=== PATIENT | male | born 1990 | race Caucasian/White ===

== ENCOUNTER 2024-01-01 09:06 | Emergency (ER) | payer OTHER, SELFPAY ==
[2024-01-01 09:06] VITALS: BP 144/91
[2024-01-01 09:28] LABS: Urine Albumin Negative (Neg - Trace); Urine Bilirubin Negative (Negative); Urine Character Slightly Cloudy (Clear); Urine Color Yellow; Urine Glucose Negative (Negative); Urine Ketone Negative (Negative); Urine Leukocyte Negative (Negative); Urine Nitrite Negative (Negative); Urine Occult Blood Negative (Negative); Urine Specific Gravity 1.015 (<1.030); Urine Urobilinogen Negative (Neg - 1+)
--- NOTE | 2024-01-01 09:41 | ED.GENMED ---
History of Present Illness
General
Chief Complaint: Male Genito-Urinary Symptoms
Source: patient
Time Seen by Provider: 01/01/24 09:36
History of Present Illness
History of Present Illness:
33-year-old male presents the emergency room complaining of pain, redness and swelling left scrotum. Pain was noticed about 5 days ago. Patient does not believe his left testicle was enlarged prior to that. He denies any dysuria or frequency.
Patient denies any known exposure to STDs and does not believe he could have been exposed to them. Patient denies fever or chills. No trauma.
Past History
Social History
Employment: Employed
Phy Exam
Physical Exam
Physical Exam:
General: Awake, Alert, Oriented X3. No acute distress.
Vitals: unremarkable
Head: Atraumatic
Eyes: Pupils equal, EOMI
Throat: Airway intact, no exudates
Neck: Trachea midline
Lungs: Clear and equal b/l
Heart: Regular rate, no murmurs
Abd: Soft, Nontender, No pulsatile mass
Genitalia: Normal penis, on inspection the left hemiscrotum is clearly enlarged with some erythema. On palpation the testicle is enlarged with boggy type lesion noted superior we immediately.
Neuro: Nonfocal
Skin: Warm, dry, no rash
Extremities: pulses equal b/l, no edema
Course
Orders/Labs/Results
Orders:
Orders
01/01/24 09:08
US Scrotum Urgent
Comment:
Reason For Exam: pain, swelling L testicle
01/01/24 09:12
Urinalysis Reflex To Culture Urgent
Date Specimen was Collected: 01/01/24
Time Specimen was Collected: 09:09
Chlamydia/GC by PCR Urgent
ATILIO Source: U
Specimen Description:
Date Specimen was Collected: 01/01/24
Time Specimen was Collected: 09:09
01/01/24 11:37
Add On- LAB Urgent
Tests Added?: urine gc/chlamydia
01/01/24 11:54
LevoFLOXacin [Levaquin] 500 mg PO NOW STA
Vital Signs
Initial and Last Documented VS:
Initial Vital Signs
Temp Pulse Resp BP Pulse Ox
98.3 F 78 16 144/91 98
01/01/24 09:06 01/01/24 09:06 01/01/24 09:06 01/01/24 09:06 01/01/24 09:06
Last Documented Vital Signs
Temp Pulse Resp BP Pulse Ox
98.3 F 74 18 140/78 98
01/01/24 09:06 01/01/24 11:52 01/01/24 11:52 01/01/24 11:52 01/01/24 11:52
MDM/Problems Addressed
Differential Diagnosis Includes:
Epididymitis, orchitis, hydrocele, varicocele, testicular mass
MDM/Problems Addressed:
Patient has tenderness on exam but is otherwise stable. Ultrasound obtained which shows evidence of left testicular orchitis. There is also a small cystic structure in the testicle. Discussed any possible exposure to sexually transmitted diseases
with the patient and he denies this as a possibility. Urine PCR for gonorrhea and chlamydia was negative. Patient will be treated for typical urinary tract pathogens with Levaquin. Explained that Levaquin is occasionally associated with tendon
inflammation and the patient should look for this. Return to the emergency room or call his primary care doctor if this develops. Patient also instructed follow-up with urology for both resolution of the orchitis and to follow-up on the cystic
lesion noted in the testicle.
*Radiology
Radiology exam reviewed: radiology read reviewed
*Pulse Oximetry
Patient hypoxic: no
*Critical Care Note
Total Time (30-74mins, 75-104mins- exclusive of procedures): Not Applicable
ED Attending Note
-
Portions of this chart may have been created with voice recognition software.� Occasional wrong word or��sound alike� substitutions may have occurred due to the inherent limitations of voice recognition software.
Discharge Plan
Departure
Patient Disposition: Home (Routine Discharge)
Date of Disposition: 01/01/24
Time of Disposition: 11:55
Patient with high blood pressure during this ER visit?: Yes
Condition: Good
Discharge Problem:
Orchitis of left testicle
Instructions: BLOOD PRESSURE, Epididymitis and Orchitis
Prescriptions:
New
levofloxacin 500 mg tablet
500 mg PO DAILY 10 Days Qty: 10 0RF
No Action
amoxicillin-pot clavulanate 875 MG/125 MG tablet
1 tab PO BID Qty: 20 0RF
Referrals:
Eliseo Ortiz MD [Active] -
Christian Mishra CRNP [Family Provider] -
Activity Restrictions/Additional Instructions:
Your ultrasound showed signs of infection in the left testicle. I have sent a prescription for levaquin to the pharmacy. Call your doctor if you develop inflammation of tendons while taking the medication. The ultrasound also showed a small cyst
in the left testicle which is likely nothing of concern but you should follow up with a urologist (I have given you contact information for Dr. Ortiz) to make sure your infection clears up and to follow up on the cyst.
Interventions
Interventions:
*General Assessment Last Done: 01/01/24 11:04
ED- Fall Risk Assessment Last Done: 01/01/24 11:04
*Nursing Disposition Last Done: 01/01/24 12:14
ED-Male Genitourinary Assessment Last Done: 01/01/24 11:04
Discharge Date and Time
Discharge Date/Time: 01/01/24 12:24
Print Language: [place]
[2024-01-01 11:52] VITALS: BP 140/78
[2024-01-01] MEDS: LEVAQUIN 500 MG PO (12:02)
== END 2024-01-01 12:24 | disposition home or self-care (01) ==
LOC: EMR 09:06
PROVIDERS: Physician Assistant Medical; EMERGENCY PHYSICIAN Emergency Medicine; FAMILY PHYSICIAN Registered Nurse
DX: N45.2 Orchitis (principal); R03.0 Elevated blood-pressure reading, without diagnosis of hypertension
CPT/HCPCS: 99284; 76870; 81003; 87491; 87591; 93976